=== PATIENT | male | born 1930 | race Caucasian/White ===

== ENCOUNTER 2017-04-01 11:50 | Emergency (ER) | payer OTHER ==
[~2017-04-01] VITALS: Ht 167.6 cm; Wt 99.8 kg
[2017-04-01 13:29] LABS: BASO % 0.6 % (0.0-1.0); EOS # 0.1 10*3/uL (0.0-0.4); EOS % 1.6 % (1.0-4.0); HEMATOCRIT 44.4 % (42.0-52.0); LYMPH # 1.5 10*3/uL (1.3-4.4); LYMPH % 22.1 % (27.0-41.0); MEAN CELL VOLUME 90.8 fl (80.0-94.0); MEAN CORPUSCULAR HGB 30.7 pg (27.0-31.0); MEAN CORPUSCULAR HGB CONC 33.8 g/dl (33.0-37.0); MEAN PLATELET VOLUME 13.1 fl (9.6-12.3); MONO # 0.4 10*3/uL (0.1-1.0); MONO % 6.1 % (3.0-9.0); NEUT # 4.7 10*3/uL (2.3-7.9); NEUT % 69.3 % (47.0-73.0); PLATELET COUNT AUTOMATED 152 10*3/uL (130-400); RED BLOOD COUNT 4.89 10*6/uL (4.50-5.90); RED CELL DISTRI WIDTH 15.2 % (0-14.5); WHITE BLOOD COUNT 6.7 10*3/uL (4.8-10.8)
[2017-04-01 13:43] LABS: ACT PARTIAL THROMBO TIME 23.6 SECONDS (20.8-31.5)
[2017-04-01 13:44] LABS: CREATININE 1.6 mg/dL (0.70-1.30); POTASSIUM 3.4 mmol/L (3.5-5.1)
== END 2017-04-01 14:35 | disposition home or self-care (01) ==
LOC: ED 11:50
PROVIDERS: Emergency Medicine
DX: M79.89 Other specified soft tissue disorders (principal); R70.0 Elevated erythrocyte sedimentation rate; R60.0 Localized edema

== ENCOUNTER 2017-05-20 13:06 | Emergency (ER) | payer OTHER ==
[~2017-05-20] VITALS: Ht 162.5 cm; Wt 61.2 kg
[2017-05-20 13:28] LABS: BILIRUBIN NEGATIVE (NEGATIVE); BLOOD TRACE-INTACT (NEGATIVE); CLARITY SL CLOUDY (CLEAR); COLOR YELLOW (YELLOW); GLUCOSE NEGATIVE (NEGATIVE); KETONE NEGATIVE (NEGATIVE); LEUKO ESTERASE 1+ (NEGATIVE); NITRITE NEGATIVE (NEGATIVE); PH 8.5 (5.0-9.0)
[2017-05-20 13:35] LABS: WBC 16-20 wbc/hpf (0-5)
[2017-05-20 13:36] LABS: BACTERIA 1+; TRIP PHOS CRYSTALS 2+
[2017-05-20] MEDS ORDERED: CEFUROXIME AXE250 MG PO (14:37)
[2017-05-20 14:53] LABS: BASO % 0.3 % (0.0-1.0); EOS % 0.1 % (1.0-4.0); HEMATOCRIT 42.2 % (42.0-52.0); HEMOGLOBIN 14.1 g/dl (14.0-18.0); LYMPH # 1.1 10*3/uL (1.3-4.4); LYMPH % 7.6 % (27.0-41.0); MEAN CORPUSCULAR HGB 31.1 pg (27.0-31.0); MEAN CORPUSCULAR HGB CONC 33.4 g/dl (33.0-37.0); MEAN PLATELET VOLUME 13.3 fl (9.6-12.3); MONO # 1.2 10*3/uL (0.1-1.0); MONO % 7.9 % (3.0-9.0); NEUT # 12.2 10*3/uL (2.3-7.9); NEUT % 83.5 % (47.0-73.0); PLATELET COUNT AUTOMATED 142 10*3/uL (130-400); RED BLOOD COUNT 4.54 10*6/uL (4.50-5.90); WHITE BLOOD COUNT 14.7 10*3/uL (4.8-10.8)
[2017-05-20 15:10] LABS: ALBUMIN 3.3 gm/dl (3.1-4.5); ALKALINE PHOSPHATASE 95 U/L (45-117); BUN 25 mg/dl (7-24); CHLORIDE 91 mmol/L (98-107); CREATININE 1.29 mg/dL (0.70-1.30); POTASSIUM 3.6 mmol/L (3.5-5.1); SGPT/ALT 26 U/L (12-78); SODIUM 129 mmol/L (136-145); TOTAL PROTEIN 7.7 gm/dL (6.4-8.2)
[2017-05-20 15:13] LABS: SGOT/AST 27 IU/L (3-35)
== END 2017-05-20 14:07 | disposition left against medical advice (07) ==
LOC: ED 13:06
PROVIDERS: Emergency Medicine; Nurse Practitioner
DX: N39.0 Urinary tract infection, site not specified (principal); I48.91 Unspecified atrial fibrillation

== ENCOUNTER 2017-06-14 04:15 | Emergency (ER) | payer OTHER ==
[~2017-06-14] VITALS: Ht 170.1 cm; Wt 63.5 kg
[~2017-06-14 04:15] MED LIST: CEFUROXIME AXE250 MG PO
[2017-06-14 05:57] LABS: BASO % 0.3 % (0.0-1.0); EOS # 0.2 10*3/uL (0.0-0.4); EOS % 1.9 % (1.0-4.0); HEMATOCRIT 43.7 % (42.0-52.0); HEMOGLOBIN 14.6 g/dl (14.0-18.0); LYMPH # 1.2 10*3/uL (1.3-4.4); LYMPH % 13.7 % (27.0-41.0); MEAN CELL VOLUME 94.2 fl (80.0-94.0); MEAN CORPUSCULAR HGB 31.5 pg (27.0-31.0); MEAN CORPUSCULAR HGB CONC 33.4 g/dl (33.0-37.0); MEAN PLATELET VOLUME 13.5 fl (9.6-12.3); MONO # 0.2 10*3/uL (0.1-1.0); MONO % 2.1 % (3.0-9.0); NEUT % 80.8 % (47.0-73.0); PLATELET COUNT AUTOMATED 115 10*3/uL (130-400); RED BLOOD COUNT 4.64 10*6/uL (4.50-5.90); RED CELL DISTRI WIDTH 14.6 % (0-14.5); WHITE BLOOD COUNT 8.6 10*3/uL (4.8-10.8)
[2017-06-14 06:06] LABS: ALBUMIN 3.5 gm/dl (3.1-4.5); ALKALINE PHOSPHATASE 93 U/L (45-117); BUN 19 mg/dl (7-24); CHLORIDE 94 mmol/L (98-107); CREATININE 1.65 mg/dL (0.70-1.30); POTASSIUM 3.1 mmol/L (3.5-5.1); SGOT/AST 23 IU/L (3-35); SGPT/ALT 22 U/L (12-78); SODIUM 132 mmol/L (136-145); TOTAL PROTEIN 7.4 gm/dL (6.4-8.2)
[2017-06-14 06:12] LABS: TROPONIN I < 0.015 ng/ml (<0.045)
[2017-06-14 07:43] LABS: BILIRUBIN NEGATIVE (NEGATIVE); CLARITY TURBID (CLEAR); COLOR YELLOW (YELLOW); GLUCOSE NEGATIVE (NEGATIVE); KETONE NEGATIVE (NEGATIVE); SPECIFIC GRAVITY 1.005 (1.005-1.030)
[2017-06-14 07:44] LABS: BLOOD 2+ (NEGATIVE); LEUKO ESTERASE 3+ (NEGATIVE); NITRITE NEGATIVE (NEGATIVE); UROBILINOGEN 0.2 E.U./dl (0.2-1.0)
[2017-06-14 07:46] LABS: BACTERIA 4+; MUCOUS 4+; RBC 31-40 rbc/hpf (0-2); WBC 21-30 wbc/hpf (0-5)
[2017-06-14] MEDS ORDERED: LEVOFLOXACIN500 MG PO (09:56)
[2017-06-14] MEDS ORDERED: LOTRISONE 0.05%45 GM T (09:56)
== END 2017-06-14 10:02 | disposition home or self-care (01) ==
LOC: ED 04:15
PROVIDERS: Emergency Medicine
DX: N39.0 Urinary tract infection, site not specified (principal); R31.9 Hematuria, unspecified

== ENCOUNTER 2017-06-29 15:38 | Inpatient (IN) | payer OTHER ==
[~2017-06-29] VITALS: Ht 160 cm; Wt 72.3 kg
--- NOTE | ~2017-06-29 | CON ---
[place], [place] REPORT OF CONSULTATION NAME: SHAR MERCADO UNIT #: [id number] ROOM: 419 DOCTOR: KRISTEN COX ED.D (JAME) BIRTHDATE: [birth year] DOS: 06/30/2017 HISTORY OF PRESENT ILLNESS: The patient is an 86-year-old male who is presently on the 4th floor at [facility]. He is not certain whether or not he is , but states he does have 5 children. I did speak at length with his granddaughter. 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 He has no idea what his doctor's name is. His medical history is pertinent for chronic kidney disease, hypertension and malnutrition and dementia. His medications include Risperdal, Exelon, hydroxyzine, thiamin, amlodipine, lisinopril, metoprolol, Geodon and Lovenox. This patient states he used to smoke, but he quit and does not use any alcoholic beverages. He was awake, alert and oriented to person only. He had no idea where he was and he had no idea he is in a hospital. He had no idea of the year or the date or the month or the time of the year and was very confused throughout the interview. It is clear this patient is not competent to make informed healthcare decisions due to the fact his short and long-term memories are markedly impaired. I did complete expert evaluation forms for guardianship. 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 RECOMMENDATIONS: In my opinion, this patient needs a guardian. Thank you very much for this consultation. KRISTEN COX ED.D CM:CONSTR:REPORT OF CONSULTATION 1246 07/01/17 0432 interface
--- NOTE | ~2017-06-29 | CON ---
[place], [place] REPORT OF CONSULTATION NAME: SHAR MERCADO UNIT #: [id number] ROOM: 419 DOCTOR: RADHA SCRUGGS MD BIRTHDATE: [birth year] DOS: 06/30/2017 PSYCHIATRIC CONSULTATION CHIEF COMPLAINT: "I just want to go home, I have been here for 5 days already." HISTORY OF PRESENT ILLNESS: This is an 86-year-old white male seen by his PCP in his office on the afternoon of admission. At that point in time, the patient's family who accompanied him reported that the patient's dementia has been worsening to the point where he is having significant mood lability and agitation. These symptoms especially got worse in the last several days prior to this admission. Since his admission to the hospital at [facility], he has been increasingly agitated and verbally and physically combative. The patient believes he has been here 5 days and is being held against his will and feels he needs to leave the hospital so he can take care of his family. He reported that he came here to do heavy lifting and other work and does not know why he was given in a hospital bed. PAST MEDICAL HISTORY: Remarkable for chronic kidney disease stage 3, macrocytic anemia, hypertension, protein-calorie malnutrition and a long history of dementia. The patient is a former smoker and drinks alcohol socially. He does not use any illicit drugs. MENTAL STATUS: The patient is alert and oriented to person, place, but not time. He does believe he has been here at least 5 days and reports he lives in ____ or [place]. He was not certain. He lives in a building, but could not tell me what type of building. He is very volatile and labile, very short and terse with his responses, but he did redirect. Short term memory is very poor. DIAGNOSIS: Brief psychotic disorder. PLAN: I will go ahead and order Risperdal 0.5 mg in the morning and 1 mg at bedtime, also ordered Ativan and Geodon PRNs to be given intramuscular if needed to prevent harm to self and others. The patient would be an excellent candidate for crisis stabilization and medication management on the [facility] pending placement into a long-term care facility. RADHA SCRUGGS MD CM:CONSTR:REPORT OF CONSULTATION 0933 06/30/17 1124 interface
[2017-06-29 15:38] VITALS: BP 125/72
[~2017-06-29 15:38] MED LIST changes: +LEVOFLOXACIN500 MG PO; +LOTRISONE 0.05%45 GM T
[2017-06-29] MEDS ORDERED: NORVASC5 MG PO (15:53)
[2017-06-29] MEDS ORDERED: LISINOPRIL40 MG PO (15:53)
[2017-06-29] MEDS ORDERED: MELATONIN3 MG PO (15:54)
[2017-06-29] MEDS ORDERED: ASPIR LOW81 MG PO (15:54)
[2017-06-29] MEDS ORDERED: THIAMINE HCL100 MG PO (15:55)
[2017-06-29] MEDS ORDERED: HYDR12.5C PO (15:55)
[2017-06-29] MEDS ORDERED: LOPRESSOR50 M1 PO (15:56)
[2017-06-29] MEDS ORDERED: ARICEPT5 M1 PO (15:56)
[2017-06-29 16:04] LABS: BASO # 0.1 10*3/uL (0.0-0.1); BASO % 0.5 % (0.0-1.0); EOS # 0.2 10*3/uL (0.0-0.4); EOS % 1.7 % (1.0-4.0); HEMATOCRIT 38.8 % (42.0-52.0); HEMOGLOBIN 12.9 g/dl (14.0-18.0); LYMPH # 1.5 10*3/uL (1.3-4.4); LYMPH % 14.7 % (27.0-41.0); MEAN CELL VOLUME 94.6 fl (80.0-94.0); MEAN CORPUSCULAR HGB 31.5 pg (27.0-31.0); MEAN CORPUSCULAR HGB CONC 33.2 g/dl (33.0-37.0); MEAN PLATELET VOLUME 12.3 fl (9.6-12.3); MONO # 0.6 10*3/uL (0.1-1.0); MONO % 6.2 % (3.0-9.0); NEUT # 7.6 10*3/uL (2.3-7.9); PLATELET COUNT AUTOMATED 232 10*3/uL (130-400); RED CELL DISTRI WIDTH 14.1 % (0-14.5); WHITE BLOOD COUNT 9.9 10*3/uL (4.8-10.8)
[2017-06-29 16:13] LABS: ACT PARTIAL THROMBO TIME 23.8 SECONDS (20.8-31.5); INTERNATIONAL NORM RATIO 1.1 (2.0-3.5)
[2017-06-29 16:20] LABS: ALBUMIN 3.1 gm/dl (3.1-4.5); ALKALINE PHOSPHATASE 105 U/L (45-117); BUN 38 mg/dl (7-24); CHLORIDE 97 mmol/L (98-107); CREATININE 1.55 mg/dL (0.70-1.30); POTASSIUM 3.6 mmol/L (3.5-5.1); SGOT/AST 22 IU/L (3-35); SGPT/ALT 31 U/L (12-78); SODIUM 134 mmol/L (136-145)
[2017-06-29 16:27] LABS: TROPONIN I < 0.015 ng/ml (<0.045)
[2017-06-29 17:11] LABS: BILIRUBIN NEGATIVE (NEGATIVE); BLOOD NEGATIVE (NEGATIVE); CLARITY CLEAR (CLEAR); COLOR YELLOW (YELLOW); GLUCOSE NEGATIVE (NEGATIVE); KETONE NEGATIVE (NEGATIVE); LEUKO ESTERASE NEGATIVE (NEGATIVE); NITRITE NEGATIVE (NEGATIVE); SPECIFIC GRAVITY 1.015 (1.005-1.030)
[2017-06-29 17:18] LABS: BACTERIA 2+; RBC 0-2 rbc/hpf (0-2)
[2017-06-29 18:03] VITALS: BP 105/68
[2017-06-29 20:29] VITALS: BP 97/71
[2017-06-30 00:15] VITALS: BP 139/92
[2017-06-30 08:00] VITALS: BP 153/84
[2017-06-30 12:00] VITALS: BP 108/62
[2017-06-30 20:00] VITALS: BP 136/67
[2017-07-01 00:18] VITALS: BP 137/80
[2017-07-01 08:00] VITALS: BP 136/78
[2017-07-01] MEDS ORDERED: RIVASTIGMINE1 EACH T (11:08)
[2017-07-01] MEDS ORDERED: ENOXAPARIN40 MG/0.2 SC (11:08)
[2017-07-01] MEDS ORDERED: RISPERDAL0.5 MG PO (13:56)
[2017-07-01] MEDS ORDERED: RISPERDAL1 M1 PO (13:57)
== END 2017-07-01 12:46 | disposition home health service (06) | DRG 640 ==
LOC: ED 15:38 → EDHOLD 16:36 → 4E 16:36
PROVIDERS: Nurse Practitioner Family
DX: E87.1 Hypo-osmolality and hyponatremia (principal); G93.41 Metabolic encephalopathy; E44.0 Moderate protein-calorie malnutrition; D53.9 Nutritional anemia, unspecified; F01.51 Vascular dementia, unspecified severity, with behavioral disturbance; F23 Brief psychotic disorder; F02.81 Dementia in other diseases classified elsewhere, unspecified severity, with behavioral disturbance; R53.1 Weakness; R00.1 Bradycardia, unspecified; G30.9 Alzheimer's disease, unspecified; N18.3 Chronic kidney disease, stage 3 (moderate); I12.9 Hypertensive chronic kidney disease with stage 1 through stage 4 chronic kidney disease, or unspecified chronic kidney disease; R73.9 Hyperglycemia, unspecified; Z78.9 Other specified health status; Z79.82 Long term (current) use of aspirin; Z79.899 Other long term (current) drug therapy; Z68.28 Body mass index [BMI] 28.0-28.9, adult

== ENCOUNTER 2017-07-01 11:24 | Inpatient (IN) | payer OTHER ==
[~2017-07-01] VITALS: Ht 160 cm; Wt 72.3 kg
--- NOTE | ~2017-07-01 | PR ---
[place], [place] PROGRESS NOTE NAME: SHAR MERCADO UNIT #: [id number] ROOM: 314 DOCTOR: RADHA SCRUGGS MD BIRTHDATE: [birth year] DOS: 07/15/2017 CHIEF COMPLAINT: "Oh doctor, home is where the heart is, I want to go home, please." SUMMARY OF THE VISIT: The patient was interviewed after he was working with physical therapy on gait training and strengthening. He engaged readily in conversation and is very much fixated on going home. He did redirect with a little bit of difficulty, but nonetheless did calm down and engage in meaningful conversation. He continues to be fixated with going home or at least leaving the hospital. He does seem to be outwardly tolerating the current medication regimen well and I see no sedation, somnolence, extrapyramidal symptoms or tardive dyskinesia. MENTAL STATUS: He remains alert and oriented with time gaps. Mood does seem to be trending towards euthymia and affect is more appropriate. What anxiety is present is there because he is homesick and wants out of the hospital. There is no hypomania or psychosis. He does process slowly and short-term memory remains somewhat problematic. PLAN: We will continue the current psychotropic regimen, awaiting the ability to discharge to the least restrictive environment. RADHA SCRUGGS MD CM:PNTRANS [id number] RADHA SCRUGGS MD 08/05/17 1610 interface
--- NOTE | ~2017-07-01 | PR ---
[place], [place] PROGRESS NOTE NAME: SHAR MERCADO UNIT #: [id number] ROOM: 314 DOCTOR: DAI POWELL MD BIRTHDATE: [birth year] DOS: 07/12/2017 SUBJECTIVE: Patient seen and spoke with staff. Per staff, patient is doing well. No behavior problems or issues. Medication compliant. Patient was in the day area. He reported doing well. He denied depressed mood or hopelessness. Denied any other neurovegetative signs and symptoms of depression. He reports good sleep and appetite. MENTAL STATUS EXAMINATION: Pleasant and cooperative. Described his mood as "good." Affect bright. Thought processes with confabulation. He denied auditory or visual hallucination. No delusion or paranoia noted. He denied suicidal ideation, intent or plan. He also denied any homicidal ideation, intent or plan. PLAN: 1. Continue current medications and care. 2. Encourage activity and groups. 3. Final medication management and discharge plan by the regular team. DAI POWELL MD CM:PNTRANS [id number] DAI POWELL MD 07/13/17 1513 interface
--- NOTE | ~2017-07-01 | PR ---
[place], [place] PROGRESS NOTE NAME: SHAR MERCADO UNIT #: [id number] ROOM: 314 DOCTOR: RADHA SCRUGGS MD BIRTHDATE: [birth year] DOS: 07/16/2017 CHIEF COMPLAINT: "Oh doctor, it is good to see you, but I really want to go home." SUMMARY OF THE VISIT: The patient was interviewed once again in the dining area. He was sitting at the dining table having already eaten his breakfast. Upon approach, he was very engaging and was happy to see me, but also then with the next breath voiced his displeasure that he is still here and not at home. He has been pleasant and cooperative and has not exhibited any significant mood lability or agitation. There has been no verbal or physical aggression in some time. He does also seem to be tolerating the current medication regimen well without any apparent side effects. His only other complaint this morning was a mild headache for which he requested ibuprofen. MENTAL STATUS: He is alert and oriented with time gaps. Mood does seem to be trending towards euthymia. Affect is much more appropriate. There is no philippe, hypomania or psychosis. Short-term memory continues to have gaps, otherwise he is intact. PLAN: I will maintain his current psychotropic regimen, continue to engage in individual and henao milieu activity with the ultimate plan to discharge to the least restrictive environment when psychiatrically stable. RADHA SCRUGGS MD CM:PNTRANS [id number] RADHA SCRUGGS MD 07/17/17 0446 interface
--- NOTE | ~2017-07-01 | PR ---
[place], [place] PROGRESS NOTE NAME: SHAR MERCADO UNIT #: [id number] ROOM: 314 DOCTOR: RADHA SCRUGGS MD BIRTHDATE: [birth year] DOS: 07/13/2017 CHIEF COMPLAINT: "Hey, good to see you jose l, do I get to go soon. Thanks for stopping." SUMMARY OF THE VISIT: The patient was interviewed as he was sitting at the dining table, having already eaten his breakfast. He smiled as I approached and engaged me readily shaking my hand. He reports that he feels ready to go home, stating that home is where the heart is and he would like to be able to go there soon. When I told him that it was going to happen shortly being a matter of days, he nodded his head in agreement. He voiced no other complaints. He was pleasant and appropriate and there was no mood lability or agitation noted. MENTAL STATUS: He is alert and oriented to person, place, not necessarily time. Mood does seem to be trending towards euthymia and affect is more appropriate. There is no philippe or hypomania. There are no gross psychotic symptoms. He does remain grossly confused and disjointed in his thinking and short term memory remains problematic. PLAN: I will continue his current psychotropic regimen, continue to engage in individual and henao milieu activity with the plan to return to the least restrictive environment when psychiatrically stable. RADHA SCRUGGS MD CM:PNTRANS 0943 26 RADHA SCRUGGS MD 07/13/175 interface
--- NOTE | ~2017-07-01 | PR ---
[place], [place] PROGRESS NOTE NAME: SHAR MERCADO UNIT #: [id number] ROOM: 314 DOCTOR: MARINA WINTER DO BIRTHDATE: [birth year] DOS: 07/10/2017 PSYCHIATRIC PROGRESS NOTE CHIEF COMPLAINT: "I'm doing well." SUMMARY OF VISIT: Patient was interviewed in the dining area after he has completed his breakfast. He is pleasant and appropriate. He still is confused in his thinking, but he is pleasant. There was no drooling, no tremor symptoms noted. MENTAL STATUS EXAMINATION: He is alert and oriented to self. Mood seems to be more euthymic. Affect is appropriate. There is no philippe, no hypomania. Memory poor. PLAN: We will continue his current medication regimen. We will consider possible placement options and discharge when psychiatrically stable. ADDENDUM Dr. Scruggs 07/30/17 10:48 am: Above note reviewed. Agree with observations, recommendations, and overall treatment plan. Marina Winter, RADHA SCRUGGS MD CM:NATANAEL [id number] MARINA WINTER DO 07/30/17 1059 APRIL PARIS.FREDA
--- NOTE | ~2017-07-01 | PR ---
[place], [place] PROGRESS NOTE NAME: SHAR MERCADO UNIT #: [id number] ROOM: 314 DOCTOR: DAI POWELL MD BIRTHDATE: [birth year] DOS: 07/11/2017 PSYCHIATRIC PROGRESS NOTE SUBJECTIVE: The patient seen and spoke with the staff. Per staff, the patient is pleasantly confused. No behavior problems or issues, takes his medication regularly, slept well last night. The patient was pleasant and cooperative. He was in the day area. He reports doing good. He was not in any acute distress, denied any problems or concerns. MENTAL STATUS EXAMINATION: Pleasant, cooperative. Described his mood as "good." Affect, mood congruent. Thought processes with confabulation. He denied auditory or visual hallucination. No delusion or paranoia noted. He denied suicidal ideation, intent or plan. He also denied homicidal ideation, intent or plan. PLAN: 1. Continue current medication and care. 2. Continue redirection. 3. Supportive care. DAI POWELL MD CM:PNTRANS 31 DAI POWELL MD 07/12/178 interface
--- NOTE | ~2017-07-01 | PR ---
[place], [place] PROGRESS NOTE NAME: SHAR MERCADO [id number] UNIT #: [id number] ROOM: 314 DOCTOR: AIDEE SULLIVAN DO BIRTHDATE: [birth year] DOS: 07/08/2017 PSYCHIATRIC PROGRESS NOTE CHIEF COMPLAINT: "I lost my top piece." SUMMARY OF VISIT: The patient is an 86-year-old male who was admitted to the [facility] after initially being admitted to the medical floor at [facility] due to significant altered mental status. He is currently on hospital day #7 and has been noted to have increased somnolence. Per nursing staff, the patient did not wake up to eat breakfast this morning. The patient was interviewed in his room. He was sleeping comfortably in his bed. He did appear to have a hard time hearing today; however, was able to answer questions appropriately. There was concern for excessive drooling and the Internal Medicine hospital team was concerned if this may be due to psychotropic regimen therapy. Speech evaluation was ordered. Urine electrolytes were also ordered with possible Nephrology consult pending results. This is being managed by the Internal Medicine hospitalist team. A chest x-ray was done and this was negative for acute pulmonary disease. The patient was alert and oriented to person and place. He was able to sleep 8 hours last night uninterrupted. When asked if the patient needed anything, he stated that he could not find his top dentures. These were located in the drawer. When asked if he needed anything, he stated he was hungry. The patient is currently on a fluid restriction pending electrolyte urine results. This is being managed by the internal hospitalist team. The patient was informed that lunch was going to be administered, for this reason we were not able to supplement him with any supplemental nutrition at that time. The patient voiced understanding and he did not voice any other concerns at that time. MENTAL STATUS EXAMINATION: The patient is alert and oriented to self and place. He does appear to be more tired. Mood was trending more towards euthymia. Affect was more appropriate. The patient was noted to have excessive drooling. For this reason, Risperdal has been discontinued. The patient appeared to have difficulty hearing; however, was able to answer questions appropriately when asked. He did not appear to be in any form of distress. No signs of philippe or hypomania. No signs of auditory or visual hallucinations. No signs of combative or aggressive behavior. PLAN: 1. Due to the concerns for excessive drooling, we have discontinued Risperdal and have given Cogentin IM. 2. We have renewed the Ativan p.r.n. order. 3. Urine electrolytes are being ordered by the internal hospitalist team who is managing his medical comorbidities. Pending on results possible Nephrology consult will be made. 4. Disposition: The patient to be discharged possibly to [facility] foster care case manager and land use planner have been in contact with the patient in regards to possible options. Discharge will depend on psychiatric and medical status at that time. Until then we will continue to engage the patient individually and word milieu, returning to the least restrictive environment [place], [place] PROGRESS NOTE NAME: SHAR MERCADO UNIT #: [id number] ROOM: [facility] DOCTOR: AIDEE SULLIVAN DO BIRTHDATE: [birth year] when psychiatrically stable. ADDENDUM Dr. Scruggs 07/30/17 10:48 am: Above note reviewed. Agree with observations, recommendations, and overall treatment plan. Aidee Sullivan DO RADHA SCRUGGS MD CM:NATANAEL 1202 [id number] AIDEE SULLIVAN DO 07/30/17 1049 APRIL PARIS.BENITOR
--- NOTE | ~2017-07-01 | DS ---
[place], [place] DISCHARGE SUMMARY NAME: [facility]CAD[id number] UNIT #: [id number] ROOM: 314 DOCTOR: RADHA SCRUGGS MD BIRTHDATE: [birth year] DOS: 07/17/2017 CHIEF COMPLAINT: "Oh, I know you, can I leave, where can I go to see my children." HISTORY OF PRESENT ILLNESS: This is an 86-year-old white male who was admitted initially to the medical floor at [facility] due to significant altered mental status. While on the medical floor, the patient was noted to be extremely confused and disoriented. Family reports that he has a lengthy history of Alzheimer dementia and is becoming progressively confused to the point he could not attend to his ADLs and has become both verbally and physically aggressive with family. They do not feel at this point that he can live independently and needs some type of placement. The patient also was increasingly more agitated and aggressive while on the medical floor requiring PRNs to calm him down to prevent harm to self and others. He is admitted now to rule out any organic factors, to stabilize on medication, returning to the least restrictive environment when psychiatrically stable. PAST MEDICAL HISTORY: Remarkable for chronic kidney disease stage 3, Alzheimer's dementia, hypertension, anemia, protein-calorie malnutrition and bradycardia. SOCIAL HISTORY: The patient is a former cigarette smoker. He has had a history of social alcohol use, but denies any illicit drug use. ALLERGIES: The patient has no known allergies. STRENGTHS: Good verbal skills, ambulatory, supportive family, sense of humor. WEAKNESSES: Significant cognitive impairment. SUMMARY OF THE HOSPITAL COURSE: The patient was admitted to the unit where his Aricept was discontinued in lieu of Exelon patch 4.6 mg daily. This was augmented with Namenda 5 mg a day. He was started on Risperdal 0.5 mg in the morning and 1 mg at nighttime to decrease his agitation and aggression. It was determined during his stay that a long-term care placement was warranted. At that point in time, a passer was started and he did the pass the passer. Family chose to send him to [facility]. During the course of his stay, his Exelon was increased to its maximum dose of 13.3 mg a day while the Namenda was brought up to its maximum dose of 10 mg b.i.d. He tolerated this well without any apparent side effects. He did have a low vitamin D level of 12.1, so he was augmented with vitamin D 50,000 international units weekly. His B12 level was low normal at 360, so he was given a B12 injection of 1000 mcg IM monthly. With this combination of medications, the patient improved enough to go to [facility] where I will follow him upon his admission there. MENTAL STATUS AT DISCHARGE: He is alert and oriented to person, place, not time. Mood was definitely euthymic. He was able to joke and laugh and be spontaneous. His responses at times did not make sense and he was rather disjointed and fragmented, but pleasantly so. There was no hypomania or philippe. [place], [place] DISCHARGE SUMMARY NAME: SHAR MERCADO [facility] #: [id number] UNIT #: [id number] ROOM: [facility] DOCTOR: RADHA SCRUGGS MD BIRTHDATE: [birth year] Likewise, there are no auditory or visual hallucinations. No delusions, no paranoia. Short-term memory was poor, otherwise he was intact. FINAL DIAGNOSES UPON DISCHARGE: Intermittent explosive disorder and Alzheimer's dementia. DISPOSITION: To be admitted to [facility]. I will follow him upon his admission there. At the time of discharge, he was medically and psychiatrically stable and his biopsychosocial needs were adequately being met. RADHA SCRUGGS MD CM:DISCHINGRIS 1151 1553 RADHA SCRUGGS MD 08/12/17 1551 interface
--- NOTE | ~2017-07-01 | CON ---
[place], [place] REPORT OF CONSULTATION NAME: SHAR MERCADO UNIT #: [id number] ROOM: 314 DOCTOR: KRISTEN COX ED.D (JAME) BIRTHDATE: [birth year] DOS: 07/06/2017 HISTORY OF PRESENT ILLNESS: The patient is an 86-year-old male referred for competency evaluation. At the present time, he is on the Senior Behavior[facility] Unit at [facility]. I did evaluate him previously when he was on the 4th floor at [facility]. He does have 5 children and his family was supportive, but he obviously needs long-term care. 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 His pertinent history is pertinent for chronic kidney disease, hypertension, malnutrition and major neurocognitive disorder -- dementia. His medications include Namenda, calcium, Exelon, hydrochlorothiazide, thiamin, aspirin, lisinopril, amlodipine This patient does not have any present substance abuse issues, although I do know he did smoke at one time. He is alert to person only. He continues to have no idea where he is or what year it He stated he was 42 years old in 8 years, indicating that he would be 34 years old. He did not know his address or did not know where his children lived. When he was a medical patient, I did complete an expert evaluation form for guardianship, however, apparently he is a resident of [place], [place] and therefore guardianship will not work in [place]. He is here under a pink slip, so therefore civil commitment may be necessary. I can discuss this further with the licensed master social worker on the unit tomorrow when they are here in the office due to the fact that today is . He is clearly not competent to make informed healthcare decisions. DIAGNOSIS: Major neurocognitive disorder -- Alzheimer's disease with behavioral disturbance. RECOMMENDATIONS: In my opinion, the patient needs long-term care and possibly a guardianship in the [facility]. Thank you very much for this consult. KRISTEN COX ED.D CM:CONSTR:REPORT OF CONSULTATION 1148 07/06/172017 interface RADHA SCRUGGS MD
--- NOTE | ~2017-07-01 | WRIGHTHP ---
[place], [place] PATIENT HISTORY AND PHYSICAL EXAM NAME: SHAR MERCADO UNIT #: [id number] ROOM: 314 DOCTOR: RADHA SCRUGGS MD BIRTHDATE: [birth year] DOS: 07/02/2017 CHIEF COMPLAINT: "Oh, I know you, can I leave, so I can go see my children." HISTORY OF PRESENT ILLNESS: This is an 86-year-old white male who was admitted initially to the medical floor at [facility] due to a significant altered mental status. While on the medical floor, the patient was noted to be extremely confused and disoriented. Family reports that he has a lengthy history of Alzheimer dementia and is becoming progressively confused to the point he could not attend to his ADLs and he has become verbally and physically aggressive with family. They do feel at this point that he is going to require some type of placement. When I did have the opportunity to initially evaluate the patient on the medical floor, the patient reported that he had been there for 5 days when in reality, he had only been there for one. He was somewhat agitated and irritable, but did redirect. While on the medical floor though the patient did require p.r.n. intervention because of increased mood lability and agitation. The PRNs were effective in calming him without side effects. He is admitted now to rule out further organic factors, to attempt to stabilize on medication, engaging in individual and henao milieu activities with the plan ultimately to place in the least restrictive environment when stable. PAST MEDICAL HISTORY: Remarkable for chronic kidney disease stage 3, Alzheimer dementia, hypertension, anemia, protein calorie malnutrition and bradycardia. SOCIAL HISTORY: The patient is a former smoker, has had social alcohol use, but denies any illicit drug use. ALLERGIES: The patient has no known allergies. STRENGTHS: His strengths are good verbal skills and he is ambulatory with a supportive family environment. MENTAL STATUS: The patient is alert and oriented to self only. He is approximate to time and does realize he is in the hospital, but is not able to give me fine details of what led to him coming in here. He was fairly pleasant, but at times edgy and irritable, but redirectable. He remains grossly confused and does process sometimes slowly. Short-term memory is exceptionally poor. DIAGNOSES: Brief psychotic disorder and Alzheimer dementia. PLAN: The patient had his Aricept discontinued while on the medical floor and Exelon patch 4.6 mg daily was added. I will go ahead and increase this to 9.5 and augment with Namenda 5 mg a day with a target dose for both being 13.3 mg daily for the Exelon patch and 20 mg daily for the Namenda. I have already started him on Risperdal 0.5 mg in the morning and 1 mg at bedtime to decrease the mood debility and the psychosis. We will explore possible emergency guardianship and placement given the severity of his dementia with resultant agitation and combativeness. [place], [place] PATIENT HISTORY AND PHYSICAL EXAM NAME: SHAR MERCADO UNIT #: [id number] ROOM: [facility] DOCTOR: RADHA SCRUGGS MD BIRTHDATE: [birth year] RADHA SCRUGGS MD CM:HISPHYS:PATIENT HISTORY AND PHYSICAL EXAMINATION 0847 1 RADHA SCRUGGS MD 07/02/17 0901 interface
--- NOTE | ~2017-07-01 | PR ---
[place], [place] PROGRESS NOTE [id number] UNIT #: [id number] ROOM: 314 DOCTOR: AIDEE SULLIVAN DO BIRTHDATE: [birth year] DOS: 07/07/2017 CHIEF COMPLAINT: "No, I don't need anything right now." SUMMARY OF VISIT: The patient is an 86-year-old male who was admitted to the U after initially being admitted to the medical floor at [facility] due to significant altered mental status. He is currently in BHU on hospital day #6 with persistent confusion. The patient was initially interviewed in his room. He was resting comfortably in bed and did not appear to be in any distress. When asked if he needed anything, he said no, he just felt tired. Per nursing staff, the patient slept past 2100. The patient was later interviewed in the dining room. He was eating his snack in applesauce at that time. When asked if he needed anything, he again stated that he did not need anything. He reports sleeping well last night. When asked if he was hungry as he had eaten his breakfast, he stated that he is okay. The patient did appear slightly tired; however, he responded in short sentences. Upon chart review, the patient did not receive PT today as he was in the shower and no OT as he was in group at that time. The patient did not voice any other complaints at this time. MENTAL STATUS EXAMINATION: The patient is alert and oriented to person and place, but not time. His mood is trending towards euthymia. His affect is blunted and flat. Short term and alf memory continue to be problematic. No signs of philippe, hypomania were noted. No signs of auditory or visual hallucinations. The patient does continue to appear confused at times. PLAN: 1. No changes to psychotropic regimen to be made at this time. 2. Dr. Mal Trammell, clinical psychologist, was consulted in order to evaluate competency. Dr. Trammell did initially evaluate the patient while he was on the medical floor. He was consulted once again; however, this consult took place in the BHU. Per Dr. Trammell's recommendation, the patient requires long-term care and possibly guardianship in [facility]. The patient initially was evaluated by Dr. Trammell on the floor and need for guardianship was filed; however, apparently the patient is a resident of [place], [place] and therefore guardianship will not work in [place]. At this time, a civil commitment may be necessary. This was discussed between Dr. Trammell and the health social work professor. We are awaiting the recommendations at this time. 3. Disposition: The patient has been working with the sales planner. At this time, they have reached out to [facility]. We are awaiting their response. Discharge will depend on psychiatric and medical stability. Until then, we will continue to engage the patient in individual and henao milieu activity, returning to the least restrictive environment when psychiatrically stable. ADDENDUM Dr. Scruggs 07/30/17 10:48 am: Above note reviewed. Agree with observations, recommendations, and overall treatment plan. [place], [place] PROGRESS NOTE NAME: SHAR MERCADO UNIT #: [id number] ROOM: [facility] DOCTOR: AIDEE SULLIVAN DO BIRTHDATE: [birth year] Aidee Sullivan DO RADHA SCRUGGS MD CM:PNTRANS [phone] AIDEE SULLIVAN DO 07/30/17 1048 APRIL PARIS.FREDA
--- NOTE | ~2017-07-01 | PR ---
[place], [place] PROGRESS NOTE NAME: SHAR MERCADO UNIT #: [id number] ROOM: 314 DOCTOR: MARINA WINTER DO BIRTHDATE: [birth year] DOS: 07/14/2017 CHIEF COMPLAINT: "Ready to go." SUMMARY OF VISIT: This is an 86-year-old male who was interviewed this morning in the hallway while sitting in his wheelchair. Per nursing staff, patient slept about 8 hours last night and they stated that patient has expressed his wishes that he does not like having a fluid restriction requirement because he would like to have coffee during group. The patient continues to be very engaged during conversations with him and he is smiling currently with this conversation. The patient states that he is ready to leave and go home. We informed the patient that the process of going home is being worked on. The patient did request if he could have a candy bar and specifically would like a [place] bar. The patient was very pleasant throughout the entire interaction with him this morning. MENTAL STATUS EXAMINATION: The patient is alert and oriented to person and place, not necessarily time. Mood is appropriate and euthymic. There is no philippe or hypomania. Short-term memory continues to be poor. PLAN: 1. We will continue his current psychotropic regimen. 2. We will continue to have him engage in individual and henao milieu activity with the plan to return to the least restrictive environment when psychiatrically stable. ADDENDUM Dr. Scruggs 07/30/17 10:48 am: Above note reviewed. Agree with observations, recommendations, and overall treatment plan. Marina Winter DO [place], [place] PROGRESS NOTE NAME: SHAR MERCADO UNIT #: [id number] ROOM: 314 DOCTOR: MARINA WINTER DO BIRTHDATE: [birth year] RADHA SCRUGGS MD CM:PNJAKE [id number] MARINA WINTER DO 08/07/17 1009 BREEZY DOSS.TM
--- NOTE | ~2017-07-01 | PR ---
[place], [place] PROGRESS NOTE [id number] UNIT #: [id number] ROOM: 314 DOCTOR: AIDEE SULLIVAN DO BIRTHDATE: [birth year] DOS: 07/06/2017 CHIEF COMPLAINT: "I haven't seen you in a while, doctor." SUMMARY OF VISIT: He is an 86-year-old male who was admitted to the U after initially being admitted to the medical floor at [facility] due to significant metabolic encephalopathy. While on the medical floor, the patient was noted to be confused and disoriented. Today he was interviewed in the dining room. He was sitting in a wheelchair and had just finished breakfast. When we approached him, he stated that he did not remember Dr. Scruggs. Dr. Scruggs then reminded him that he had talked with him yesterday. The patient quickly said "Oh, ya." The patient then asked when he would be able to go home. At that point, he said, "I have already been here 8 years." The patient continued to be confused regarding time. The patient also was noted to be tired. He was asking if he could lay down to take a nap. The patient readily engaged in conversation. He did not voice any other complaints at this time. He did not appear to be in any form of distress. MENTAL STATUS EXAMINATION: The patient is alert and oriented to person and place, but not time. The patient believes he has [facility] 8 years now. His mood is trending towards euthymia. His affect is more appropriate. Short term and senior living memory have continued to be problematic. No signs of agitation or aggression were noted during my exam. The patient also continues to be confused: PLAN: 1. We have increased Namenda from 5 mg to 10 [address]. Trammell has been consulted in order to determine the patient's competency status. Dr. Trammell will be in to see the patient tomorrow. 3. We have to continue to work with the case making machine operator as the patient's insurance is currently listed as an out of state providers. This has complicated placement issues; however, we will continue to work to find appropriate discharge planning to meet the patient's psychiatric and medical needs. Until then, we will continue to engage the patient in individual and henao milieu activity, returning to the least restrictive environment when psychiatrically stable. Discharge likely to be sometime later this week will depend on medical and psychiatric status at that time. ADDENDUM Dr. Scruggs 07/30/17 10:48 am: Above note reviewed. Agree with observations, recommendations, and overall treatment plan. Aidee Sullivan DO [place], [place] PROGRESS NOTE NAME: SHAR MERCADO UNIT #: [id number] ROOM: 314 DOCTOR: AIDEE SULLIVAN DO BIRTHDATE: [birth year] RADHA SCRUGGS MD CM:NATANAEL [phone] AIDEE SULLIVAN DO 07/30/17 1048 APRIL [place].BENITOR
--- NOTE | ~2017-07-01 | PR ---
[place], [place] PROGRESS NOTE NAME: SHAR MERCADO UNIT #: [id number] ROOM: 314 DOCTOR: RADHA SCRUGGS MD BIRTHDATE: [birth year] DOS: 07/05/2017 CHIEF COMPLAINT: "Hey, jose l I really would like to lie down, I am tired." SUMMARY OF THE VISIT: The patient was interviewed in the dining area. He had just completed his breakfast and reported to me that he would like to lie down as he is somewhat tired. He was bright and pleasant though and offered no other complaints and was not agitated in any shape or manner. MENTAL STATUS: He is alert and oriented to person, place, not time. Mood seems to be trending towards euthymia. Affect is more appropriate. There is no philippe or hypomania. There are no gross psychotic symptoms. Short-term memory continues to be problematic. Otherwise, he is intact. PLAN: I will go ahead and increase his Namenda to 15 mg totally in a day and order vitamin B12 injections to be given monthly after he receives his dose today. We will continue to engage in individual and henao milieu activities with the plan then to return to the least restrictive environment when stable. RADHA SCRUGGS MD CM:PNTRANS 1317 RADHA SCRUGGS MD 07/05/17 1316 interface
--- NOTE | ~2017-07-01 | PR ---
[place], [place] PROGRESS NOTE NAME: SHAR MERCADO UNIT #: [id number] ROOM: 314 DOCTOR: RADHA SCRUGGS MD BIRTHDATE: [birth year] DOS: 07/17/2017 CHIEF COMPLAINT: "Oh there you are, I know I am a broken record, do I get to go home soon." SUMMARY OF THE VISIT: The patient was interviewed first in the hallway briefly and then later as he sat ready to eat breakfast. He engaged readily in conversation and was very bright and gregarious. He smiled as I approached, shook my hand and once again was fixated on going home. He is rather homesick and is hoping he is able to leave soon. He does redirect well and deals with the frustration of his continued stay fairly well. There is no aggression, agitation or any mood lability. He does seem to also be tolerating the current medication regimen well without any apparent side effects. MENTAL STATUS: He remains alert and oriented to person and place, not necessarily to time. Mood does seem to be strongly euthymic. Affect is much more appropriate. There is no philippe, hypomania or gross psychotic symptoms. Short-term memory continues to be problematic, but otherwise he is intact. PLAN: I will continue him on his current psychotropic regimen. We are just awaiting the [facility] to be able to discharge him to [facility] for further treatment. We will continue to engage him in individual and henao milieu activity with the ultimate plan to return to the least restrictive environment when psychiatrically stable. RADHA SCRUGGS MD CM:PNTRANS [id number] RADHA SCRUGGS MD 07/18/17 0006 interface
--- NOTE | ~2017-07-01 | PR ---
[place], [place] PROGRESS NOTE NAME: SHAR MERCADO UNIT #: [id number] ROOM: 314 DOCTOR: RADHA SCRUGGS MD BIRTHDATE: [birth year] DOS: 07/09/2017 CHIEF COMPLAINT: "Good to see you again, how have you been?" SUMMARY OF THE VISIT: The patient was interviewed in the dining area where he had completed his breakfast. He had been eating his food mostly with his own fingers. He was pleasant and appropriate and he was much more awake and engaging this morning than he was yesterday. He was still confused and disjointed in his thinking, but pleasantly so. I saw no other medication side effects and there was no drooling, no tremor or extrapyramidal symptoms noted. MENTAL STATUS: He is alert and oriented to self, possibly place, not necessarily to time. Mood does seem to be more euthymic. Affect is appropriate. There is no philippe or hypomania. There are no gross psychotic symptoms. Memory remains poor. PLAN: I will maintain his current psychotropic regimen, which includes Exelon patch 13.3 mg a day and Namenda 10 mg b.i.d. We will explore possible placement options and discharge when psychiatrically stable. RADHA SCRUGGS MD CM:PNTRANS [id number] RADHA SCRUGGS MD 07/09/17 2326 interface
--- NOTE | ~2017-07-01 | PR ---
[place], [place] PROGRESS NOTE NAME: SHAR MERCADO UNIT #: [id number] ROOM: 314 DOCTOR: RADHA SCRUGGS MD BIRTHDATE: [birth year] DOS: 07/04/2017 CHIEF COMPLAINT: "Hey doctor, can you get my family on the phone, can I get my car keys back." SUMMARY OF THE VISIT: The patient was interviewed in the dining area. He had already completed his breakfast and was sitting there, engaging in conversation with a male peer. He stopped and engaged in conversation with me. He remains alert, but confused, especially on time. He was pleasant and cooperative; however, nurses report that there is a trend in improvement. MENTAL STATUS: He is alert and oriented to person, place, not time. Mood seems to be trending towards euthymia. Affect is more appropriate. There is no philippe or hypomania. There are no gross psychotic symptoms noted at this time. Short term memory is poor. PLAN: I will go ahead and increase his Namenda to 5 mg twice daily, targeting at 10 mg twice daily dose. I will discontinue his a.m. Risperdal as family has expressed concern that he might have been too somnolent yesterday. Routine screening examinations upon admission show him to have a low vitamin D level of 12.1, so I will augment with vitamin D 50,000 International Units weekly. His B12 level is low normal at 360. I will go ahead and order vitamin B12 injection of 1000 mcg IM today. We will engage in individual and henao milieu therapy, returning to the least restrictive environment when stable. RADHA SCRUGGS MD CM:PNTRANS 4 [phone] RADHA SCRUGGS MD 07/04/172047 interface
--- NOTE | ~2017-07-01 | PR ---
[place], [place] PROGRESS NOTE NAME: SHAR MERCADO UNIT #: [id number] ROOM: 314 DOCTOR: AIDEE SULLIVAN DO BIRTHDATE: [birth year] DOS: 07/03/2017 Psychiatric Progress Note The patient is an 86-year-old man. CHIEF COMPLAINT: "I am still feeling so hungry." SUMMARY OF VISIT: The patient is an 86-year-old male who was admitted to the U after initially being admitted to the medical floor at [facility] due to significant metabolic encephalopathy. While on the medical floor, the patient was noted to be confused and disoriented. Family at that time stated that the patient had become unable to attend to his ADLs and had become verbally and physically aggressive towards them. The patient was seen at his PCP's office on the afternoon of admission through the ER to the medical floor. It is believed that the patient was sent to the ED from the PCP's office for three day evaluation for custodial placement. Family stated that they were unable to provide adequate care for the patient at home. Of note, the patient was evaluated by Dr. Trammell who did deem the patient incompetent. Dr. Scruggs was also consulted at that time who recommended transfer to the U when medically stable. While on the medical floor Dr. Scruggs did discontinue Aricept and a daily Exelon patch of 4.6 mg daily was added. Today, the patient was interviewed in the dining room. He was sitting in a wheelchair and did not appear to be in any distress. He was eating his breakfast up. He had just finished eating his breakfast per nursing staff; however, he did request more food. We offered to provide him a second helping of breakfast and he said thank you and stated he was still hungry. Per nursing staff, the patient slept 8 hours last night. He was obsessive yesterday afternoon about being able to stay on the phone. The patient was discouraged from this activity as he was making these requests during group therapy time. We encouraged the patient to attend group. The patient was known to be combative this morning towards hands on care provided by nursing staff. Nursing staff also stated that he was threatening to kill the nursing staff members. This morning during my visit, the patient did not appear to demonstrate any signs of combative behavior. He did appear somewhat tired; however, he did sleep 8 hours last night. The patient did not voice any other concerns at that time. He does continue to appear confused. MENTAL STATUS EXAMINATION: The patient is alert and oriented to self. The patient continues to appear confused and disorganized. Affect is withdrawn and blunted. Mood is inappropriate. The patient was readily engaged in conversation; however, he did appear to have gaps in his short term memory. The patient did not show signs of philippe or hypomania during my exam. No signs of auditory or visual hallucinations were noted this morning during my exam. PLAN: We have increased Exelon patch from 9.5 mg to 13.3 mg daily. No other changes to be made to psychotropic regimen at this time. The patient does not appear to be demonstrating significant side effects to current regimen. However, he does appear to be a little bit more groggy and tired this morning. We are continuing to explore possible emergency guardianship and placement options due to the patient's dementia and reluctant agitation and combativeness [place], [place] PROGRESS NOTE NAME: SHAR MERCADO UNIT #: [id number] ROOM: [facility] DOCTOR: AIDEE SULLIVAN DO BIRTHDATE: [birth year] towards our staff, this will be discussed with the merchandise planner and the senior electrical design engineer. The patient will be continued to be engaged in individual and henao milieu activity, returning to the least restrictive environment when psychiatrically stable. Discharge will depend on psychiatric and medical status at that time. ADDENDUM Dr. Scruggs 07/30/17 10:48 am: Above note reviewed. Agree with observations, recommendations, and overall treatment plan. Aidee Sullivan, DO RADHA SCRUGGS MD CM:PNJAKE [phone] AIDEE SULLIVAN DO 07/30/17 1048 APRIL [place].BENITOR
[~2017-07-01 11:24] MED LIST changes: +ARICEPT5 M1 PO; +ASPIR LOW81 MG PO; +ENOXAPARIN40 MG/0.2 SC; +HYDR12.5C PO; +LISINOPRIL40 MG PO; +LOPRESSOR50 M1 PO; +MELATONIN3 MG PO; +NORVASC5 MG PO; +RIVASTIGMINE1 EACH T; +THIAMINE HCL100 MG PO
[2017-07-01 13:00] VITALS: BP 113/68
[2017-07-01] MEDS ORDERED: RISPERDAL0.5 MG PO (13:56)
[2017-07-01] MEDS ORDERED: RISPERDAL1 M1 PO (13:57)
[2017-07-01 20:10] VITALS: BP 151/81
[2017-07-02 07:37] VITALS: BP 138/72
[2017-07-02 08:10] LABS: BASO % 0.3 % (0.0-1.0); EOS # 0.1 10*3/uL (0.0-0.4); HEMATOCRIT 39.3 % (42.0-52.0); HEMOGLOBIN 13.1 g/dl (14.0-18.0); LYMPH # 1.4 10*3/uL (1.3-4.4); LYMPH % 15.7 % (27.0-41.0); MEAN CELL VOLUME 94.9 fl (80.0-94.0); MEAN CORPUSCULAR HGB 31.6 pg (27.0-31.0); MEAN CORPUSCULAR HGB CONC 33.3 g/dl (33.0-37.0); MEAN PLATELET VOLUME 12.7 fl (9.6-12.3); MONO # 0.5 10*3/uL (0.1-1.0); MONO % 5.4 % (3.0-9.0); NEUT # 6.9 10*3/uL (2.3-7.9); PLATELET COUNT AUTOMATED 216 10*3/uL (130-400); RED BLOOD COUNT 4.14 10*6/uL (4.50-5.90)
[2017-07-02 08:22] LABS: ALBUMIN 3.2 gm/dl (3.1-4.5); ALKALINE PHOSPHATASE 122 U/L (45-117); BUN 23 mg/dl (7-24); CHLORIDE 97 mmol/L (98-107); CHOLESTEROL 118 mg/dL (<200); CREATININE 1.24 mg/dL (0.70-1.30); HDL CHOLESTEROL 44 mg/dl (40-60); LDL CHOLESTEROL 59 mg/dL (9-159); SGOT/AST 25 IU/L (3-35); SGPT/ALT 29 U/L (12-78); SODIUM 136 mmol/L (136-145); TOTAL PROTEIN 7.1 gm/dL (6.4-8.2); TRIGLYCERIDES 76 mg/dl (<150); VLDL CHOLESTEROL 15 mg/dL (6-40)
[2017-07-02 09:18] LABS: VITAMIN D, 25-HYDROXY 12.1 ng/mL (30-100)
[2017-07-02 15:33] LABS: BILIRUBIN NEGATIVE (NEGATIVE); BLOOD NEGATIVE (NEGATIVE); CLARITY CLEAR (CLEAR); COLOR YELLOW (YELLOW); GLUCOSE NEGATIVE (NEGATIVE); KETONE NEGATIVE (NEGATIVE); LEUKO ESTERASE NEGATIVE (NEGATIVE); NITRITE NEGATIVE (NEGATIVE); PH 6.5 (5.0-9.0)
[2017-07-02 15:51] LABS: BACTERIA 1+; MUCOUS TRACE
[2017-07-02 20:21] VITALS: BP 133/90
[2017-07-03 07:58] VITALS: BP 128/68
[2017-07-03 20:20] VITALS: BP 139/84
[2017-07-04 08:05] VITALS: BP 142/75
[2017-07-04 20:00] VITALS: BP 127/68
[2017-07-05 07:55] VITALS: BP 133/70
[2017-07-05 20:00] VITALS: BP 116/72
[2017-07-06 07:35] VITALS: BP 151/72
[2017-07-06 20:05] VITALS: BP 122/85
[2017-07-07 07:40] VITALS: BP 128/61
[2017-07-07 20:00] VITALS: BP 128/71
[2017-07-08 06:33] LABS: ALBUMIN 2.8 gm/dl (3.1-4.5); ALKALINE PHOSPHATASE 103 U/L (45-117); BUN 22 mg/dl (7-24); CHLORIDE 94 mmol/L (98-107); CREATININE 1.11 mg/dL (0.70-1.30); POTASSIUM 3.9 mmol/L (3.5-5.1); SGOT/AST 28 IU/L (3-35); SGPT/ALT 24 U/L (12-78); SODIUM 128 mmol/L (136-145); TOTAL PROTEIN 5.8 gm/dL (6.4-8.2)
[2017-07-08 06:51] LABS: BASO % 0.5 % (0.0-1.0); EOS % 0.4 % (1.0-4.0); HEMATOCRIT 34.8 % (42.0-52.0); HEMOGLOBIN 11.8 g/dl (14.0-18.0); LYMPH # 1.2 10*3/uL (1.3-4.4); LYMPH % 13.9 % (27.0-41.0); MEAN CELL VOLUME 92.1 fl (80.0-94.0); MEAN CORPUSCULAR HGB 31.2 pg (27.0-31.0); MEAN CORPUSCULAR HGB CONC 33.9 g/dl (33.0-37.0); MEAN PLATELET VOLUME 13.5 fl (9.6-12.3); MONO # 0.6 10*3/uL (0.1-1.0); NEUT # 6.6 10*3/uL (2.3-7.9); NEUT % 77.7 % (47.0-73.0); PLATELET COUNT AUTOMATED 116 10*3/uL (130-400); RED BLOOD COUNT 3.78 10*6/uL (4.50-5.90); RED CELL DISTRI WIDTH 13.9 % (0-14.5); WHITE BLOOD COUNT 8.4 10*3/uL (4.8-10.8)
[2017-07-08 08:37] VITALS: BP 128/78
[2017-07-08 10:38] LABS: URINE CREATININE RANDOM 59.9 mg/dL
[2017-07-08 20:00] VITALS: BP 106/81
[2017-07-09 06:40] LABS: BASO % 0.2 % (0.0-1.0); EOS % 0.5 % (1.0-4.0); HEMATOCRIT 37.8 % (42.0-52.0); HEMOGLOBIN 12.9 g/dl (14.0-18.0); LYMPH # 1.5 10*3/uL (1.3-4.4); LYMPH % 17.6 % (27.0-41.0); MEAN CELL VOLUME 92.6 fl (80.0-94.0); MEAN CORPUSCULAR HGB 31.6 pg (27.0-31.0); MEAN CORPUSCULAR HGB CONC 34.1 g/dl (33.0-37.0); MEAN PLATELET VOLUME 13.6 fl (9.6-12.3); MONO # 0.7 10*3/uL (0.1-1.0); MONO % 7.7 % (3.0-9.0); NEUT # 6.3 10*3/uL (2.3-7.9); NEUT % 73.5 % (47.0-73.0); PLATELET COUNT AUTOMATED 128 10*3/uL (130-400); RED BLOOD COUNT 4.08 10*6/uL (4.50-5.90); RED CELL DISTRI WIDTH 13.9 % (0-14.5); WHITE BLOOD COUNT 8.6 10*3/uL (4.8-10.8)
[2017-07-09 06:56] LABS: ALBUMIN 3.2 gm/dl (3.1-4.5); BUN 21 mg/dl (7-24); CHLORIDE 94 mmol/L (98-107); CREATININE 1.17 mg/dL (0.70-1.30); PHOSPHOROUS 3.2 mg/dL (2.5-4.9); SODIUM 130 mmol/L (136-145)
[2017-07-09 08:00] VITALS: BP 109/72
[2017-07-09 20:41] VITALS: BP 123/74
[2017-07-10 08:43] VITALS: BP 124/84
[2017-07-10 19:25] VITALS: BP 103/61
[2017-07-11 07:36] VITALS: BP 123/82
[2017-07-11 07:39] VITALS: BP 123/82
[2017-07-11 20:12] VITALS: BP 130/74
[2017-07-12 07:44] VITALS: BP 146/57
[2017-07-12 18:48] LABS: CREATININE 1.53 mg/dL (0.70-1.30); POTASSIUM 4.2 mmol/L (3.5-5.1)
[2017-07-12 20:33] VITALS: BP 127/70
[2017-07-13 08:13] VITALS: BP 138/75
[2017-07-13 20:12] VITALS: BP 137/78
[2017-07-14 08:02] VITALS: BP 121/82
[2017-07-14 19:39] VITALS: BP 134/87
[2017-07-15 07:45] VITALS: BP 132/68
[2017-07-15] MEDS ORDERED: LISINOPRIL20 MG PO (11:08)
[2017-07-15] MEDS ORDERED: FLOMAX0.4 MG PO (11:08)
[2017-07-15] MEDS ORDERED: B121000 MCG/1 IM (11:11)
[2017-07-15 20:10] VITALS: BP 127/82
[2017-07-16 07:46] VITALS: BP 125/71
[2017-07-16 19:47] VITALS: BP 130/74
[2017-07-17 07:39] VITALS: BP 131/83
[2017-07-17] MEDS ORDERED: EXELON13.3 MG/21 T (10:36)
[2017-07-17] MEDS ORDERED: MEMANTINE HCL10 MG PO (10:36)
[2017-07-17] MEDS ORDERED: Vitamin D PO (10:37)
== END 2017-07-17 17:05 | disposition other institution (70) | DRG 885 ==
LOC: 3N 11:24
PROVIDERS: Psychiatry & Neurology Psychiatry; Registered Nurse; Student in an Organized Health Care Education/Training Program
DX: F23 Brief psychotic disorder (principal); E44.0 Moderate protein-calorie malnutrition; E87.1 Hypo-osmolality and hyponatremia; D53.9 Nutritional anemia, unspecified; F02.81 Dementia in other diseases classified elsewhere, unspecified severity, with behavioral disturbance; G30.9 Alzheimer's disease, unspecified; N18.3 Chronic kidney disease, stage 3 (moderate); I12.9 Hypertensive chronic kidney disease with stage 1 through stage 4 chronic kidney disease, or unspecified chronic kidney disease; R73.9 Hyperglycemia, unspecified; Z68.28 Body mass index [BMI] 28.0-28.9, adult

== ENCOUNTER 2017-07-28 08:43 | Emergency (ER) | payer OTHER ==
[~2017-07-28] VITALS: Ht 170.1 cm; Wt 81.6 kg
[~2017-07-28 08:43] MED LIST changes: +B121000 MCG/1 IM; +EXELON13.3 MG/21 T; +FLOMAX0.4 MG PO; +LISINOPRIL20 MG PO; +MEMANTINE HCL10 MG PO; +RISPERDAL0.5 MG PO; +RISPERDAL1 M1 PO; +Vitamin D PO
[2017-07-28 09:13] LABS: BASO % 0.5 % (0.0-1.0); EOS # 0.1 10*3/uL (0.0-0.4); EOS % 0.8 % (1.0-4.0); HEMATOCRIT 36.3 % (42.0-52.0); HEMOGLOBIN 12.1 g/dl (14.0-18.0); LYMPH % 16.2 % (27.0-41.0); MEAN CELL VOLUME 95.5 fl (80.0-94.0); MEAN CORPUSCULAR HGB 31.8 pg (27.0-31.0); MEAN CORPUSCULAR HGB CONC 33.3 g/dl (33.0-37.0); MEAN PLATELET VOLUME 12.2 fl (9.6-12.3); MONO # 0.5 10*3/uL (0.1-1.0); MONO % 8.1 % (3.0-9.0); NEUT # 4.4 10*3/uL (2.3-7.9); NEUT % 74.1 % (47.0-73.0); PLATELET COUNT AUTOMATED 112 10*3/uL (130-400); WHITE BLOOD COUNT 5.9 10*3/uL (4.8-10.8)
[2017-07-28 09:21] LABS: ACT PARTIAL THROMBO TIME 24.3 SECONDS (20.8-31.5); INTERNATIONAL NORM RATIO 1.1 (2.0-3.5)
[2017-07-28 09:30] LABS: ALBUMIN 3.1 gm/dl (3.1-4.5); ALKALINE PHOSPHATASE 105 U/L (45-117); BUN 18 mg/dl (7-24); CHLORIDE 98 mmol/L (98-107); CREATININE 1.01 mg/dL (0.70-1.30); POTASSIUM 3.4 mmol/L (3.5-5.1); SGOT/AST 20 IU/L (3-35); SGPT/ALT 23 U/L (12-78); SODIUM 135 mmol/L (136-145); TOTAL PROTEIN 6.2 gm/dL (6.4-8.2)
[2017-07-28 09:31] LABS: TROPONIN I 0.017 ng/ml (<0.045)
[2017-07-28 09:34] LABS: BILIRUBIN NEGATIVE (NEGATIVE); BLOOD NEGATIVE (NEGATIVE); CLARITY SL CLOUDY (CLEAR); COLOR YELLOW (YELLOW); GLUCOSE NEGATIVE (NEGATIVE); KETONE NEGATIVE (NEGATIVE); LEUKO ESTERASE TRACE (NEGATIVE); NITRITE NEGATIVE (NEGATIVE); PH 5.5 (5.0-9.0)
[2017-07-28 09:41] LABS: BACTERIA 3+; MUCOUS TRACE; WBC 31-40 wbc/hpf (0-5)
== END 2017-07-28 11:07 | disposition short-term general hospital (02) ==
LOC: ED 08:43
PROVIDERS: Emergency Medicine
DX: I63.9 Cerebral infarction, unspecified (principal); I12.9 Hypertensive chronic kidney disease with stage 1 through stage 4 chronic kidney disease, or unspecified chronic kidney disease; N18.3 Chronic kidney disease, stage 3 (moderate); R73.9 Hyperglycemia, unspecified; E87.1 Hypo-osmolality and hyponatremia; Z79.82 Long term (current) use of aspirin; Z79.899 Other long term (current) drug therapy